=== PATIENT | female | born 1975 | race Caucasian/White ===

== ENCOUNTER 2019-09-02 11:05 | Emergency (ER) | payer BC, OTHER ==
[2019-09-03 16:08] LABS: SARS-CoV-2 MS2 Positive; SARS-CoV-2 N Gene Negative; SARS-CoV-2 S Gene Negative; SARS-CoV-2 orf1ab Negative
== END 2019-09-02 11:46 | disposition home or self-care (01) ==
LOC: NAV ERS 11:05
DX: R51 Headache (principal); Z20.828 Contact with and (suspected) exposure to other viral communicable diseases; I10 Essential (primary) hypertension
CPT/HCPCS: 87635; 99284; U0003